=== PATIENT | male | born 1960 | race Two or more races ===

== ENCOUNTER 2020-06-18 13:37 | Emergency (ER) | payer MEDICARE, MEDICAID ==
[~2020-06-18] VITALS: Ht 180.3 cm; Wt 76.4 kg
[2020-06-18 13:55] VITALS: BP 138/75
== END 2020-06-18 15:31 | disposition home or self-care (01) ==
LOC: ER 13:37
DX: R05 Cough (principal); R09.81 Nasal congestion; I10 Essential (primary) hypertension; Z88.2 Allergy status to sulfonamides
CPT/HCPCS: 71045; 99283

== ENCOUNTER 2024-01-05 09:21 | Emergency (ER) | payer MEDICARE, MEDICAID ==
[~2024-01-05] VITALS: Ht 180.3 cm; Wt 83.9 kg
[2024-01-05 09:26] VITALS: O2SAT 97
[2024-01-05 12:29] LABS: CLARITY URINE CLEAR (CLEAR); COLOR URINE ORANGE (YELLOW); GLUCOSE URINE NEGATIVE (NEGATIVE); KETONES URINE NEGATIVE (NEGATIVE); LEUKOCYTE ESTERASE URINE TRACE (NEGATIVE); NITRITE URINE NEGATIVE (NEGATIVE); OCCULT BLOOD URINE 3+ (NEGATIVE); PH URINE 5.5 (4.5-8.0); PROTEIN URINE TRACE (NEGATIVE); SPECIFIC GRAVITY URINE 1.011 (1.005-1.030)
[2024-01-05 13:12] LABS: SQUAMOUS EPITHELIAL CELL URINE RARE /lpf (RARE/1+)
[2024-01-05 13:14] LABS: BACTERIA URINE TRACE; RBC URINE TNTC /hpf (0-2)
[2024-01-05 14:14] VITALS: BP 172/91; PULSE 80; RESP 16; TEMP 98.2
== END 2024-01-05 14:40 | disposition home or self-care (01) ==
LOC: ER 09:21
DX: R31.9 Hematuria, unspecified (principal); I10 Essential (primary) hypertension; Z88.1 Allergy status to other antibiotic agents; Z85.038 Personal history of other malignant neoplasm of large intestine
CPT/HCPCS: 76770; 81003; 99284